=== PATIENT | female | born 1990 ===

== ENCOUNTER 2021-07-17 14:03 | Inpatient (IN) | payer OTHER ==
[~2021-07-17] VITALS: Ht 160 cm; Wt 78.0 kg
[2021-07-17] MEDS ORDERED: PRENATAL CAPLE1 EAC1 PO (14:21)
== END 2021-07-19 15:17 | disposition home or self-care (01) | DRG 807 ==
LOC: LDR 14:03 → OB/GYN 17:49 → LDR 17:51 → OB/GYN 07-18 13:40
PROVIDERS: ADMIT Obstetrics & Gynecology; ATTEND Obstetrics & Gynecology
PROC: 10E0XZZ Delivery of Products of Conception, External Approach (ICD-10-PCS; principal; 2021-07-17)
PROC: 0KQM0ZZ Repair Perineum Muscle, Open Approach (ICD-10-PCS; 2021-07-17)
PROC: 4A1HXFZ Monitoring of Products of Conception, Cardiac Rhythm, External Approach (ICD-10-PCS; 2021-07-17)
DX: O70.1 Second degree perineal laceration during delivery (principal); Z37.0 Single live birth; Z3A.39 39 weeks gestation of pregnancy; Z20.822 Contact with and (suspected) exposure to COVID-19